=== PATIENT | male | born 1935 | race Caucasian/White ===

== ENCOUNTER → 2019-01-16 05:00 | Outpatient (REF) | payer MEDICARE, OTHER, SELFPAY ==
[2019-01-16 08:48] LABS: AST(SGOT) 18 U/L (15-37); Alanine Aminotransfer ALT/SGPT 13 U/L (16-61); Anion Gap 7 (5-15); BUN 28 mg/dL (7-18); BUN/Creat Ratio 22.4 RATIO (10-20); Calcium,Total 9.2 mg/dL (8.5-10.1); Chloride 103 mmol/L (98-107); Cholesterol 171 mg/dL (200); Creatinine, Serum 1.25 mg/dL (0.70-1.30); EST Glomerular Filtration Rate 59 mL/min (>60); Est Glom Filt Rate - Afr Amer 71 mL/min (>60); Glucose 141 mg/dL (74-106); High Density Lipoprotein 58 mg/dL; Potassium 3.8 mmol/L (3.5-5.1); Sodium Level 139 mmol/L (136-145); T4 Total, Thyroxin 12.3 ug/dL (4.5-12.1); Thyroid Stim Hormone (TSH) 9.21 uIU/mL (0.358-3.74); Triglycerides 86 mg/dL; Very Low Density Lipoprotein 17 mg/dL (5-40)
[2019-01-16 09:03] LABS: Hemoglobin A1c 9.4 % (4.2-6.3)
[2019-01-17 09:20] LABS: Microalbumin,Random Urine 24.2 mg/L (NO RANGE EST.)
== END ==
PROVIDERS: Visit Provider Family Medicine
DX: E78.5 Hyperlipidemia, unspecified (principal); E03.9 Hypothyroidism, unspecified; E10.8 Type 1 diabetes mellitus with unspecified complications
CPT/HCPCS: 36415; 80048; 80061; 82043; 83036; 84436; 84443; 84450; 84460

== ENCOUNTER → 2019-03-16 05:00 | Outpatient (REF) | payer MEDICARE, OTHER, SELFPAY ==
[2019-03-16 08:26] LABS: Thyroid Stim Hormone (TSH) 1.03 uIU/mL (0.358-3.74)
== END ==
PROVIDERS: Visit Provider Family Medicine
DX: E03.9 Hypothyroidism, unspecified (principal)
CPT/HCPCS: 36415; 84443

== ENCOUNTER → 2019-06-17 05:30 | Outpatient (REF) | payer MEDICARE, OTHER, SELFPAY ==
[2019-06-17 06:39] LABS: Hematocrit 41.8 % (40-54); Hemoglobin 13.8 g/dL (13.0-16.5); Mean Corpuscular Hgb 29.1 pg (27.0-32.0); Mean Platelet Vol. 10.2 fl (6.2-12.0); Platelet Count 165 K/mm3 (150-450); RBC Distribution Width CV 13.6 % (11.6-14.6); RBC Distribution Width SD 43.9 fl (35.1-43.9); Red Blood Count 4.75 M/mm3 (4.6-6.2); White Blood Count 9.3 K/mm3 (4.4-11.0)
[2019-06-17 07:09] LABS: AST(SGOT) 14 U/L (15-37); Alanine Aminotransfer ALT/SGPT 15 U/L (16-61); Albumin, Serum 3.7 g/dL (3.2-5.0); Alkaline Phosphatase 73 U/L (45-117); Anion Gap 5 (5-15); BUN 30 mg/dL (7-18); BUN/Creat Ratio 23.4 RATIO (10-20); Calcium,Total 9.4 mg/dL (8.5-10.1); Chloride 100 mmol/L (98-107); Cholesterol 226 mg/dL (200); Creatinine, Serum 1.28 mg/dL (0.70-1.30); EST Glomerular Filtration Rate 57 mL/min (>60); Est Glom Filt Rate - Afr Amer 69 mL/min (>60); Globulin 3.8 g/dL (2.2-4.2); Glucose 280 mg/dL (74-106); High Density Lipoprotein 71 mg/dL; Potassium 3.7 mmol/L (3.5-5.1); Protein, Total 7.5 g/dL (6.4-8.2); Sodium Level 135 mmol/L (136-145); Thyroid Stim Hormone (TSH) 1.61 uIU/mL (0.358-3.74); Triglycerides 92 mg/dL; Very Low Density Lipoprotein 18 mg/dL (5-40)
[2019-06-17 08:00] LABS: Hemoglobin A1c 10.4 % (4.2-6.3)
== END ==
DX: I25.10 Atherosclerotic heart disease of native coronary artery without angina pectoris (principal); E13.9 Other specified diabetes mellitus without complications
CPT/HCPCS: 36415; 80053; 80061; 83036; 84443; 85027